=== PATIENT | male | born 1955 | race Caucasian/White ===

== ENCOUNTER 2017-02-12 08:48 | Emergency (ER) | payer OTHER ==
[2017-02-12] MEDS ORDERED: NOREPINEPHRINE BITARTRATE 4 MG/4 ML ML IV ONE (09:34)
[2017-02-12 09:41] VITALS: BP 0/0; PULSE 0; BMI 28.1
[2017-02-12 10:02] LABS: MCH 33.9 pg (25.7-33.7); MCHC 31.2 g/dl (32.0-35.9); MEAN CELL VOLUME 108.6 fl (80-96); MEAN PLT VOLUME 7.2 fl (7.5-11.1); PLATELET COUNT 91 K/MM3 (134-434); RDW 13.6 % (11.9-15.9)
[2017-02-12 10:26] LABS: INR 0.92 (0.82-1.09); PROTHROMBIN TIME (PATIENT) 10.1 SEC (9.98-11.88)
--- NOTE | 2017-02-12 10:28 | PDOC ---
History of Present Illness - General Chief Complaint: Cardiac Arrest Stated Complaint: CARDIAC ARREST Time Seen by Provider: 02/12/17 08:48 - History of Present Illness Initial Comments: 02/12/17 11:06 The patient is a 61 year old male with known history of knee surgery who arrives to the ED at 08:48 today via BLS EMS in cardiac arrest from [place]. As per friend, 15 minutes prior to ED arrival, the patient and his friend were playing tennis when the friend noticed the patient jerk and fall to the ground. CPR was started immediately by physicians on site. Per EMS, the patient was shocked five times en route by the AED that reported a shockable rhythm. No meds were given en route. 15 mins of downtime APPLICATION SECURITY ARCHITECT to the ED. Pt's who arrived soon after patient reports that the patient has no medical problems and has never had problems with his heart before. PCP: Dr. Juan Jose Galeana Past History - Past Medical History Allergies/Adverse Reactions: Allergies Allergy/AdvReac Type Severity Reaction Status Date / Time No Known Allergies Allergy Verified 02/12/17 09:40 Home Medications: Ambulatory Orders NK [No Known Home Medication] 02/12/17 Other medical history: none - Suicide/Smoking/Psychosocial Hx Smoking History: Unknown if ever smoked Have you smoked in the past 12 months: No Information on smoking cessation initiated: No Hx Alcohol Use: No Drug/Substance Use Hx: No Substance Use Type: None Review of Systems - Review of Systems Comments:: 02/12/17 11:06 unable to obtain *Physical Exam - Vital Signs Last Vital Signs Temp Pulse Resp BP Pulse Ox 0 L 0 L 0/0 100 02/12/17 08:48 02/12/17 08:48 02/12/17 08:48 02/12/17 08:48 - Physical Exam Comments: 02/12/17 11:06 GENERAL: pale, non responsive. HEAD: No signs of trauma, OP airway in place, pt being bagged EYES: pupils equal, reactive to light 4->2mm b/l LUNGS: chest rise with bagging HEART: In vtach on the monitor, pulseless ABDOMEN: Soft, non distended EXTREMITIES: cool extremities SKIN: No rashes or lesions noted. ED Treatment Course - LABORATORY CBC & Chemistry Diagram: 02/12/17 09:47 02/12/17 09:47 - ADDITIONAL ORDERS Additional order review: 02/12/17 09:47 RBC 4.06 MCV 108.6 H MCHC 31.2 L RDW 13.6 MPV 7.2 L Neutrophils % No Result Required. Lymphocytes % No Result Required. Medical Decision Making - Critical Care Time Total Critical Care Time (minutes): 120 Critical Care Statement: The care of this patient involved high complexity decision making to prevent further life threatening deterioration of the patient 's condition and/or to evaluate & treat vital organ system(s) failure or risk of failure. - Medical Decision Making 02/12/17 10:37 61-year-old male with no past medical history presents in cardiac arrest after collapsing while playing tennis. Unknown rhythm in the field due to BLS, however patient was shocked by AED 5 times. On arrival to ED, CPR continued, pt in pulseless Vtach, pads were placed, pt defibrillated at 200J, CPR continued. Peripheral large bore IV access placed in b/l AC, pt given epi, FS 123. Amp of bicarb given, calcium given, 150mg amio pushed. Pt remained in VT, with multiple shocks delivered and epi Q4mins. 150mg more of amio pushed. Pt was bagged, given rocuronium to intubate, intubated via bougie and DL with 7.5 tube with good b/l BS. Pt with ROSC at 9:13AM, 12 lead EKG revealed NSR, rate 69, STEMI in leads V1-[address]ressions. At that time, [facility] was contacted for transfer to [facility] while 45mg of tenecteplase was pushed for anteriolateral stemi. In addition, an amio gtt was started. 1L NS was started. Vitals with BP 141/99, HR 68, sat 88%. We began preparing to cool the patient, and he was officially accepted at [facility] for transfer to [facility]. At 9: 32AM, pt lost his pulse again, CPR was started immediately, shock delivered at 200J for Vfib, epi given with ROSC after 1 round of CPR at 9:34AM. IO access obtained in R tibia, levophed started for hypotension to 80s systolic. At 9:45AM , pt lost his pulse again, epi was given, pt was defibrillated for vfib. CPR was continued until ROSC at 9:49AM. Pt quickly lost his pulse again and went into vfib at 9:50AM at which point he was defibrillated again. CPR was continued with deterioration of rhythm from Vfib to PEA during subsequent pulse check at 9:58AM. Bedside US during pulse check at 10:00 with no cardiac activity. Pt's Shell was brought into the resuscitation at that point to be at the patients bedside. The patient became asystolic at 10:02A. The entire medical team was surveyed for any further thoughts or ideas at that time. CPR was continued with pt's present, pt remained asystolic. Time of was called at 10:06AM. The medical orderly was called at 10:40AM and declined the case. (spoke with investigator vice Edward, case# [id number]) At 10:45AM, a phone call placed to patients PCP Dr. Galeana. At 11:30AM, the call was returned by Dr. Galeana who was informed that the patient . *DC/Admit/Observation/Transfer Diagnosis at time of Disposition: Cardiac arrest, in hospital-based emergency department - Discharge Dispostion Disposition: Condition at time of disposition: Admit: No - Referrals Referrals: Juan Jose Galeana MD [Primary Care Provider] - - Attestations Physician Attestion: 02/12/17 10:36 I, Dr. Adis Hart MD, attest that this document has been prepared under my direction and personally reviewed by me in its entirety. I further attest, that it accurately reflects all work, treatment, procedures and medical decision -making performed by me.
[2017-02-12 10:29] LABS: ACTIVATED PTT 31.3 SECONDS (26.9-34.4)
[2017-02-12 10:35] LABS: ALBUMIN 2.7 g/dl (3.4-5.0); ALK PHOS 87 U/L (45-117); ANION GAP 26 (8-16); BILIRUBIN,TOTAL 0.3 mg/dL (0.2-1.0); CALCIUM 9.3 mg/dL (8.5-10.1); CO2 12 mmol/L (21-32); CREATININE 1.7 mg/dL (0.7-1.3); SGPT/ALT 199 U/L (12-78)
[2017-02-12 10:39] LABS: MACROCYTOSIS FEW; METAMYELOCYTE 2 % (0-2); MYELOCYTE 3 % (0-2); PLATELET ESTIMATE DECREASED (NORMAL); TOTAL CELLS COUNTED 100; TROPONIN I 0.06 ng/ml (0.00-0.05)
[2017-02-12 10:48] LABS: GLUCOSE,RANDOM 465 mg/dL (74-106); SGOT/AST 239 U/L (15-37)
== END 2017-02-12 12:35 | disposition expired ==
LOC: JER 09:00
PROC: 5A12012 Performance of Cardiac Output, Single, Manual (ICD-10-PCS; principal; 2017-02-12)
DX: I46.9 Cardiac arrest, cause unspecified (principal)
CPT/HCPCS: 36415; 71010-TC; 80053; 82553; 83605; 83880; 84484; 85025; 85610; 85730; 86850; 86900; 86901; 99285-25